=== PATIENT | female | born 1945 | race Caucasian/White ===

== ENCOUNTER → 2024-05-06 | Outpatient (CLI) | payer MEDICARE, MEDICAID, SELFPAY ==
[2024-05-06 14:21] LABS: Basophils % (Auto) 0 % (0-2.5); Eosinophils # (Auto) 0.1 Thou/mm3 (0.0-0.5); Eosinophils % (Auto) 1 % (0-10); Hematocrit 43.4 % (36.0-46.0); Hemoglobin 14.3 g/dL (12.0-16.0); Immature Granulocytes % (Auto) 0 % (0-0); Immature Granulocytes Auto 0.01 Thou/mm3 (0.00-0.00); Lymphocytes # (Auto) 2.5 Thou/mm3 (1.0-4.8); Lymphocytes % (Auto) 31 % (10-50); Mean Corpuscular HGB Conc 32.9 g/dl (31.0-37.0); Mean Corpuscular Hemoglobin 29.5 pg (25.0-35.0); Mean Corpuscular Volume 90 fL (80-100); Monocytes # (Auto) 0.6 Thou/mm3 (0.0-0.8); Monocytes % (Auto) 7 % (0-12); Neutrophils # (Auto) 4.8 Thou/mm3 (1.8-7.7); Neutrophils % (Auto) 59 % (37-80); Nucleated Red Blood Cell % 0 /100 WBC (0); Platelet Count 285 Thou/mm3 (140-440); RDW Standard Deviation 42.5 fL (36.4-46.3); Red Blood Count 4.84 Miln/mm3 (4.00-5.20)
[2024-05-06 14:28] LABS: Partial Thromboplastin Time 24.8 Seconds (22.0-36.0); Prothrombin Time 10.7 Seconds (9.0-12.2)
[2024-05-06 15:26] LABS: Anion Gap 9 (7-16); BUN/Creatinine Ratio 23 Ratio (12-20); Blood Urea Nitrogen 25 mg/dL (9-23); Calcium 10.1 mg/dL (8.3-10.6); Carbon Dioxide 28.6 mMol/L (20.0-31.0); Chloride 103 mMol/L (98-107); Creatinine (Component) 1.1 mg/dL (0.6-1.3); Glucose 100 mg/dL (74-106); Osmolality,Calculated 285 (275-295); Potassium 4.7 mMol/L (3.4-5.1); Sodium 141 mMol/L (136-145); eGFR 52 See Note
== END | disposition home or self-care (01) ==
PROVIDERS: PCP Internal Medicine; Referring Provider Internal Medicine; Visit Provider Internal Medicine
DX: I25.10 Atherosclerotic heart disease of native coronary artery without angina pectoris (principal); I48.91 Unspecified atrial fibrillation
CPT/HCPCS: 36415; 80048; 85025; 85610; 85730

== ENCOUNTER → 2024-05-12 | Outpatient (CLI) | payer MEDICARE, MEDICAID, SELFPAY ==
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
== END | disposition home or self-care (01) ==
LOC: CDIM 13:41
PROVIDERS: PCP Nurse Practitioner Family; Referring Provider Nurse Practitioner Family; Visit Provider Nurse Practitioner Family
DX: S99.822A Other specified injuries of left foot, initial encounter (principal); W34.00XA Accidental discharge from unspecified firearms or gun, initial encounter
CPT/HCPCS: 73630

== ENCOUNTER → 2024-09-23 | Outpatient (CLI) | payer MEDICARE, MEDICAID, SELFPAY ==
--- NOTE | 2024-09-23 | XR_ITS ---
Examination: Bone densitometry Date and time of exam:September 23, 2024 1507 hours INDICATIONS: Menopause age 47 vitamin D one year Technique: Lumbar spine and hip total bone mineralization values of an calculated. Peak reference and age match control results have been displayed. Findings: Lumbar spine total bone mineralization is0.837 gm/cm2. This is 1.9 standard deviations below peak reference. This is 0.6 standard deviations above age-matched controls. Hip total bone mineralization is 0.787 gm/cm2 This is 1.3 standard deviations below peak reference. This is 0.6 standard deviations above age-matched controls Impression: There is osteopenia based on lumbar spine measurements. There is osteopenia based on hip measurements
== END | disposition home or self-care (01) ==
LOC: CDIM 14:19
PROVIDERS: Referring Provider Nurse Practitioner Family; Visit Provider Nurse Practitioner Family
DX: M85.89 Other specified disorders of bone density and structure, multiple sites (principal)
CPT/HCPCS: 77080

== ENCOUNTER → 2024-09-29 | Outpatient (CLI) | payer MEDICARE, MEDICAID, SELFPAY ==
--- NOTE | 2024-09-29 | XR_ITS ---
Examination: Lumbar spine 3 views Technique one AP lateral coned lateral lower lumbar spine 3 views Date and time: September 29 thousand 25, 0816 hours INDICATIONS: Lower back pain beginning 6 months ago. FINDINGS: Severe osteopenia Chronic osteoporotic compressions L4, L3, L2, L1, T12,. No acute fracture Mild disc narrowing posteriorly L5-S1 IMPRESSION: Chronic osteoporotic compressions No acute fractures
[2024-09-29 09:42] LABS: Basophils # (Auto) 0.0 Thou/mm3 (0.0-0.2); Basophils % (Auto) 1 % (0-2.5); Eosinophils # (Auto) 0.1 Thou/mm3 (0.0-0.5); Eosinophils % (Auto) 2 % (0-10); Hematocrit 41.9 % (36.0-46.0); Hemoglobin 14.1 g/dL (12.0-16.0); Immature Granulocytes Auto 0.00 Thou/mm3 (0.00-0.00); Lymphocytes # (Auto) 2.1 Thou/mm3 (1.0-4.8); Lymphocytes % (Auto) 39 % (10-50); Mean Corpuscular HGB Conc 33.7 g/dl (31.0-37.0); Mean Corpuscular Hemoglobin 30.3 pg (25.0-35.0); Mean Corpuscular Volume 90 fL (80-100); Monocytes # (Auto) 0.5 Thou/mm3 (0.0-0.8); Monocytes % (Auto) 9 % (0-12); Neutrophils # (Auto) 2.7 Thou/mm3 (1.8-7.7); Neutrophils % (Auto) 49 % (37-80); Nucleated Red Blood Cell # 0.00 Thou/mm3 (0.00-0.00); Nucleated Red Blood Cell % 0 /100 WBC (0); Platelet Count 275 Thou/mm3 (140-440); RDW Standard Deviation 43.1 fL (36.4-46.3); Red Blood Count 4.66 Miln/mm3 (4.00-5.20); White Blood Count 5.5 Thou/mm3 (3.6-11.0)
[2024-09-29 10:13] LABS: Alanine Aminotransferase 12 U/L (10-49); Albumin, Serum 4.2 gm/dL (3.4-4.8); Albumin/Globulin Ratio 1.7 (1.2-2.2); Alkaline Phosphatase 67 U/L (46-116); Anion Gap 9 (7-16); Aspartate Amino Transferase 21 U/L (0-34); BUN/Creatinine Ratio 11 Ratio (12-20); Bilirubin,Total 0.4 mg/dL (0.3-1.2); Blood Urea Nitrogen 11 mg/dL (9-23); Calcium 9.3 mg/dL (8.3-10.6); Calcium (Corrected) 9.3 mg/dL (8.5-10.1); Carbon Dioxide 24.3 mMol/L (20.0-31.0); Cardiac Risk Estimate 6.4 RATIO (3.7-5.6); Chloride 108 mMol/L (98-107); Cholesterol 230 mg/dL (132-200); Creatinine (Component) 1.0 mg/dL (0.6-1.3); Free T4 (Free Thyroxine) 1.21 ng/dL (0.89-1.76); Globulin 2.5 gm/dL (2.3-3.5); Glucose 93 mg/dL (74-106); HDL Cholesterol 36 mg/dL (40-60); LDL Cholesterol,Calculated 148 mg/dL (0-130); Osmolality,Calculated 280 (275-295); Potassium 4.4 mMol/L (3.4-5.1); Sodium 141 mMol/L (136-145); Thyroid Stimulating Hormone 1.90 uIU/mL (0.55-4.78); Total Protein 6.7 gm/dL (5.7-8.2); Triglycerides 228 mg/dL (30-150); eGFR 58 See Note
[2024-09-29 10:33] LABS: Hepatitis C Antibody Non Reactive (Non React); Vitamin D 25 Hydroxy Total 55.0 ng/mL (7.3-40.2)
[2024-10-04 14:37] LABS: Direct LDL* 127 mg/dL (<100)
== END | disposition home or self-care (01) ==
LOC: CDIM 07:21 → COPL 08:25 → CDIM 10-13 13:29
PROVIDERS: PCP Nurse Practitioner Family; Referring Provider Nurse Practitioner Family; Visit Provider Nurse Practitioner Family
DX: M81.0 Age-related osteoporosis without current pathological fracture (principal); M85.80 Other specified disorders of bone density and structure, unspecified site; E78.00 Pure hypercholesterolemia, unspecified; Z13.1 Encounter for screening for diabetes mellitus; Z13.29 Encounter for screening for other suspected endocrine disorder; Z11.59 Encounter for screening for other viral diseases
CPT/HCPCS: 36415; 72100; 80053; 80061; 82306; 83036; 83721; 84439; 84443; 85025; 86803

== ENCOUNTER 2024-11-04 16:07 | Observation (INO) | payer MEDICARE, MEDICAID, SELFPAY ==
--- NOTE | 2024-11-02 07:00 | EKG_ITS ---
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
[2024-11-02 07:58] VITALS: BMI 28.9
[2024-11-02 08:58] LABS: Basophils # (Auto) 0.0 Thou/mm3 (0.0-0.2); Basophils % (Auto) 0 % (0-2.5); Eosinophils # (Auto) 0.2 Thou/mm3 (0.0-0.5); Eosinophils % (Auto) 3 % (0-10); Hematocrit 42.4 % (36.0-46.0); Hemoglobin 14.2 g/dL (12.0-16.0); Immature Granulocytes Auto 0.01 Thou/mm3 (0.00-0.00); Lymphocytes # (Auto) 2.5 Thou/mm3 (1.0-4.8); Lymphocytes % (Auto) 37 % (10-50); Mean Corpuscular HGB Conc 33.5 g/dl (31.0-37.0); Mean Corpuscular Hemoglobin 30.3 pg (25.0-35.0); Mean Corpuscular Volume 91 fL (80-100); Monocytes # (Auto) 0.6 Thou/mm3 (0.0-0.8); Monocytes % (Auto) 8 % (0-12); Neutrophils # (Auto) 3.5 Thou/mm3 (1.8-7.7); Neutrophils % (Auto) 51 % (37-80); Nucleated Red Blood Cell # 0.00 Thou/mm3 (0.00-0.00); Nucleated Red Blood Cell % 0 /100 WBC (0); Platelet Count 257 Thou/mm3 (140-440); RDW Standard Deviation 41.6 fL (36.4-46.3); Red Blood Count 4.68 Miln/mm3 (4.00-5.20); White Blood Count 6.7 Thou/mm3 (3.6-11.0)
[2024-11-02 09:13] LABS: INR 1.0 (0.9-1.3); Partial Thromboplastin Time 24.2 Seconds (22.0-36.0); Prothrombin Time 10.8 Seconds (9.0-12.2)
[2024-11-02 09:27] LABS: Alanine Aminotransferase 12 U/L (10-49); Albumin, Serum 4.4 gm/dL (3.4-4.8); Albumin/Globulin Ratio 1.6 (1.2-2.2); Alkaline Phosphatase 60 U/L (46-116); Anion Gap 12 (7-16); Aspartate Amino Transferase 23 U/L (0-34); BUN/Creatinine Ratio 15 Ratio (12-20); Bilirubin,Total 0.4 mg/dL (0.3-1.2); Blood Urea Nitrogen 17 mg/dL (9-23); Calcium 9.6 mg/dL (8.3-10.6); Calcium (Corrected) 9.6 mg/dL (8.5-10.1); Carbon Dioxide 23.0 mMol/L (20.0-31.0); Chloride 107 mMol/L (98-107); Creatinine (Component) 1.1 mg/dL (0.6-1.3); Estimated Creatinine Clearance 36.6 mL/min (>60); Globulin 2.8 gm/dL (2.3-3.5); Glucose 94 mg/dL (74-106); Osmolality,Calculated 284 (275-295); Potassium 4.6 mMol/L (3.4-5.1); Sodium 142 mMol/L (136-145); Total Protein 7.2 gm/dL (5.7-8.2); eGFR 52 See Note
--- NOTE | 2024-11-03 13:44 | SUR.PREOP ---
Pt notified to come in at 0700, requested by Chad OR JOSEPH.
[2024-11-04] VITALS (24 sets, daily range): BP systolic 93–126; BP diastolic 55–84; PULSE 56–83; RESP 12–20; TEMP 36.1–36.8; O2SAT 95–100; BMI 28.6; BMI 29.0; BMI 29.7
--- NOTE | 2024-11-04 11:26 | SUR.PHASEI ---
1126 Patient arrived to recovery resting comfortably in [facility], sleeping comfortably able to arouse with verbal prompting then drifts back to sleep, on oxygen 6L via oxy mask, breathing unlabored, vital signs stable, denies pain and nausea, dressing intact to right lower leg; sutures, steri-strips, abd, kerlix roll, ke wraps, no bleeding noted, bilateral dorsalis pedis pulses present when palpated, report received from Yandel CAR and Harris DODSON
--- NOTE | 2024-11-04 11:28 | PD.SUROPNT ---
Date of Procedure 11/04/24 Pre Op Diagnosis Symptomatic varicose veins right lower extremity Post Op Diagnosis Same as pre-op diagnosis Procedure Varicose vein excisions right lower extremity through 46 incisions Findings All marked varicose veins were successfully removed or disrupted Procedure Description With the patient standing in the preop area all the varicose veins of the right lower extremity to be removed were carefully marked with a sharpie pen. The patient was then brought to the operating room and general anesthesia was induced. The right lower extremity was then sterilely prepped and draped. A timeout was performed. At this point the vein excisions were manage by making a small skin ramona with a #11 blade in each of the marked areas then bluntly enlarging these incisions with a mosquito clamp and sequentially grasping and excising the veins. After all marked veins were either removed or disrupted hemostasis was obtained and the leg was washed then Steri-Strips were placed to reapproximate the incisions. A multilayer sterile bandage was then applied and the patient woke up from anesthesia was moved to recovery in stable condition Anesthesia other (Laryngeal mask anesthesia) Pathology / specimen Other (Right leg varicose veins) Estimated Blood Loss 75 Condition Stable Disposition PACU Surgeon Kaleb Ramsey MD Surgical Staff Operation Date: 11/04/24 10:45 Case Staff SUPERVISOR SUNGLASSES: Kendall Gayle RN First Assistant: Iliana Hankins
--- NOTE | 2024-11-04 12:00 | SUR.PHASEI ---
report from nurse noam. vss. breathing even and unlabored. denies pain and nausea. ppp. 100% on 8loxy mask at this time.
--- NOTE | 2024-11-04 12:33 | SUR.PHASEI ---
report to nurse noam. vss. breathing unchanged. vss. pt remains sleepy. dressing cdi.
--- NOTE | 2024-11-04 13:20 | SUR.PHASEII ---
1320 patients son at bedside, updated on patient she is very sleepy and remains on oxygen, stated he would be going home and to call him when she is closer to being ready for discharge
--- NOTE | 2024-11-04 13:26 | SUR.PHASEII ---
6579 Yandel CORSET FITTER notified via telephone regarding patient remaining sleepy and need for oxygen, patient arouses with verbal prompting, however unable to keep her eye open and drifts back to sleep, order received to continue to monitor patient and if patient is not improving in one hour contact anesthesia provider
--- NOTE | 2024-11-04 13:50 | SUR.PHASEII ---
2528 patient awake drinking fluids, working with her with incentive spirometer, will contact patient son to proceed back to the hospital
--- NOTE | 2024-11-04 14:45 | SUR.PHASEII ---
144 patient had an episode of emesis 100ml, patient shared she feel better after will monitor
[2024-11-04] MEDS: ONDANSETRON INJ 2 MG/ML INJ 2 ML 4 MG IVP (15:10)
--- NOTE | 2024-11-04 15:25 | SUR.PHASEII ---
1505 patient had an episode of emesis 200ml, stated she feels very nausea 1506 notified Yandel CAR via telephone regarding patient nausea, telephone order read-back received from Zofran 4mg via IVP x1 for nausea/vomitting, will place order in EMR and administer per anesthesia order 1525 medication effective, patient eating ice chips, taking small sip of water, denies nausea
--- NOTE | 2024-11-04 16:20 | SUR.PHASEII ---
1545 discharge instructions completed, patient dressed into her clothing and transferred into wheelchair, became anxious, stating, I feel like I'm going to , I don't feel good, I feel dizzy, I just want to lay on the floor , emotional support provided patient states, I just can't , patients son at bedside [address] Ramsey regard patient current condition, telephone order read-back received from Dr. Ramsey for Hospital Consult for care of patient and overnight stay for observation, will patient order in EMR and contact Dr. Lima [address] Lima via telephone, gave him report of patient status 1620 Dr. Lima, Dr. Johnson and Dr. Krause at bedside with patient, assessing patient, speaking with patient and her son
--- NOTE | 2024-11-04 16:48 | SUR.PHASEII ---
report received from nurse santacruz. vss. pt on 4 l oxymask 99%. son at bedside. denies pain and nausea. dressing cdi to right leg. awaiting bed in ms.
--- NOTE | 2024-11-04 17:20 | SUR.PHASEII ---
report to nurse dedra. transported to room via gurney. vss. breathing even and unlabored. denies pain and nausea. dressing cdi. nurse at bedside doing b;adder scan. pure wic remains in place.
--- NOTE | 2024-11-04 17:42 | PD.RESCONSUL ---
HPI Data of Consult Requesting Physician: Kaleb Ramsey MD Admitting Provider: Kaleb Ramsey MD Attending Provider: Kaleb Ramsey MD Primary Care Provider: Cherri Lafleur NP Consult Narrative Reason for consult: Drowsy, weak, anxious History of present illness: Sue Vaughan is 79 yr female with PMH of HLD, osteoporosis, and varicose veins who is s/p right leg varicose vein excision by Dr. Ramsey today. IM team was consulted to monitor patient overnight due to anxiety, lethargy, and weakness after procedure. Patient had received general anesthesia and no major complications during surgery. She did require oxygen on oxime mask but was able to be weaned off without difficulties and now saturating on room air adequately. Per nursing, patient had some nausea and 2 episodes of emesis after drinking some water. She received 2 L IV fluids intraoperatively and 1 L postop. She was examined at bedside and is alert and oriented x 3, drowsy most likely from sedation, vitals are stable. Labs are unremarkable. Continue to monitor patient, IV fluids, clear liquid diet and advance as tolerated. PMH: noted above PSH: , RFA right leg, left foot surgery, RFA right leg. FamHx: unknown Social: denies smoking or drinking, lives with family. Meds: atorvastatin 10mg, alendronate 70mg cc:: cc: Kaleb Ramsey MD Review of Systems Review of Systems Systems Reviewed: All systems reviewed, normal except as documented Exam Vital Signs Temp Pulse Resp BP Pulse Ox O2 Flow Rate 97.8 F 65 18 118/67 98 3 11/04/24 17:20 11/04/24 17:20 11/04/24 17:20 11/04/24 17:20 11/04/24 17:20 11/04/24 17:20 Narrative Exam General: Elderly female, No acute distress, cooperative HEENT: NCAT, No JVD noted. Mucosa moist. Pupils are equal and reactive to light bilaterally Cardiovascular: Normal S1 and S2. Regular rate and rhythm. Respiratory: Lungs are clear to auscultation bilaterally. No wheezing or crackles heard. Abdomen: Soft, nontender, not distended, normal bowel sounds. Skin: Warm to touch, dry, no rashes noted Musculoskeletal: No gross injuries. Able to move all 4 extremities. No pitting edema, right LE wrapped in Kerlix roll post surgery Neuro: Alert and oriented x3. No focal neuro deficits. Psych: Normal affect and mood Results Labs 11/05/24 05:03 11/05/24 05:03 Quality Measures Quality Measures VTE prophylaxis Advance care planning discussed with:: patient and child Medications Home Medications and Allergies Home Medications ?Medication ?Instructions ?Recorded ?Confirmed ?Type alendronate 70 mg tablet 70 mg PO QWEEK 11/02/24 11/02/24 History atorvastatin 10 mg tablet 10 mg PO HS 11/02/24 11/02/24 History Allergies Allergy/AdvReac Type Severity Reaction Status Date / Time aspirin Allergy Mild Nausea Verified 11/04/24 07:03 Visit Medications Lactated Ringer's (Lactated Ringers) 1,000 mls @ 75 mls/hr IV .[id number] ONE Stop: 11/04/24 19:19 Discontinued Medications Cefazolin Sodium (Ancef 2gm Ivpb) 2 gm in 100 mls @ 100 mls/hr IV X1 ONE Stop: 11/04/24 06:59 Lactated Ringer's (Lactated Ringers) 1,000 mls @ 20 mls/hr IV .Q24H ONE Stop: 11/05/24 05:59 Ondansetron HCl (Ondansetron Inj 2 Mg/Ml Inj 2 Ml) 4 mg IVP X1 ONE; Protocol Stop: 11/04/24 15:08 Last Admin: 11/04/24 15:10 Dose: 4 mg Assessment & Plan Plan Sue Vaughan is 79 yr female with PMH of HLD, osteoporosis, and varicose veins who is s/p right leg varicose vein excision by Dr. Ramsey today. IM team was consulted to monitor patient overnight due to anxiety, lethargy, and weakness after procedure. #Weakness #Anxiety #Lethargy #s/p varicose vein excision Post anesthesia for treatment of right leg varicose veins with excision. Completed by Dr. Ramsey today. No complications during procedure. ? Continue to monitor patient vitals ? Continue IV maintenance fluids 75 cc/h LR ?Clear liquid diet advance as tolerated ?IV Zofran 4 mg Q6hr nausea The patient's management plan was discussed with my attending physician Dr. Lima. Dottie Johnson, PGY-2 Attending Provider Attestation/Addendum I have discussed and was present for the essential components of the history, physical examination, diagnosis, and treatment plan with the resident. I agree with the patient's care as documented by the resident and amended herein by me. Augusto Lima DO. Although this document has been carefully reviewed, there may still be some phonetic and other typographical errors. These errors are purely grammatical due to imperfections in the software program and should not be construed in any way to compromise the substance of the patient's medical care during this visit. Patient seen and evaluated in the PACU, patient postop day 0 for right lower extremity varicose vein excision. After the procedure, the patient's was experiencing delirium, nausea and vomiting in the PACU, likely all secondary to her anesthesia, we will observe her overnight, her vital signs are presently stable at time of bedside visit, no acute distress. Will observe overnight and likely discharge the patient in the morning per Dr. Ramsey's recommendations.
[2024-11-04] MEDS: RINGERS LACTATED 1000 ML 1,000 ML 75 ML IV (18:07)
[2024-11-05] VITALS: BP 112/68; PULSE 72; RESP 17; TEMP 36.1; O2SAT 99
[2024-11-05 04:00] VITALS: BP 113/68; PULSE 71; RESP 17; TEMP 36.1; O2SAT 99
[2024-11-05 05:59] LABS: Basophils # (Auto) 0.0 Thou/mm3 (0.0-0.2); Basophils % (Auto) 0 % (0-2.5); Eosinophils # (Auto) 0.0 Thou/mm3 (0.0-0.5); Eosinophils % (Auto) 0 % (0-10); Hematocrit 34.5 % (36.0-46.0); Hemoglobin 11.7 g/dL (12.0-16.0); Immature Granulocytes Auto 0.03 Thou/mm3 (0.00-0.00); Lymphocytes # (Auto) 2.2 Thou/mm3 (1.0-4.8); Lymphocytes % (Auto) 23 % (10-50); Mean Corpuscular HGB Conc 33.9 g/dl (31.0-37.0); Mean Corpuscular Hemoglobin 30.4 pg (25.0-35.0); Mean Corpuscular Volume 90 fL (80-100); Monocytes # (Auto) 0.7 Thou/mm3 (0.0-0.8); Monocytes % (Auto) 7 % (0-12); Neutrophils # (Auto) 6.6 Thou/mm3 (1.8-7.7); Neutrophils % (Auto) 69 % (37-80); Nucleated Red Blood Cell # 0.00 Thou/mm3 (0.00-0.00); Nucleated Red Blood Cell % 0 /100 WBC (0); Platelet Count 227 Thou/mm3 (140-440); RDW Standard Deviation 41.3 fL (36.4-46.3); Red Blood Count 3.85 Miln/mm3 (4.00-5.20); White Blood Count 9.5 Thou/mm3 (3.6-11.0)
[2024-11-05 06:14] LABS: Anion Gap 9 (7-16); BUN/Creatinine Ratio 14 Ratio (12-20); Blood Urea Nitrogen 11 mg/dL (9-23); Calcium 9.2 mg/dL (8.3-10.6); Carbon Dioxide 26.4 mMol/L (20.0-31.0); Chloride 106 mMol/L (98-107); Creatinine (Component) 0.8 mg/dL (0.6-1.3); Estimated Creatinine Clearance 51.0 mL/min (>60); Glucose 89 mg/dL (74-106); Osmolality,Calculated 279 (275-295); Potassium 4.3 mMol/L (3.4-5.1); Sodium 141 mMol/L (136-145); eGFR > 60 See Note
[2024-11-05 06:57] VITALS: PULSE 68; RESP 18; O2SAT 97
[2024-11-05 07:30] VITALS: BP 109/63; PULSE 65; RESP 17; TEMP 36.1; O2SAT 99
--- NOTE | 2024-11-05 10:39 | PC.SS ---
Sue Vaughan is a 79-year-old female admitted to Med Surg for Right Leg Varicose Vein Excision. SS conducted bedside contact with the patient to complete initial assessment and to discuss discharge planning. SS utilized Electrical Power Station Technician Sharee. Role and reason explained. Patient confirmed demographic information. Patient identifies son Garett Vaughan [phone] as her surrogate decision maker. Pt states she is able to complete all ADL?s independently. No need for any source of DME. Pts PCP is Cherri Pastrana. Discharge options discussed and the pt wishes to return home.? Family will provide transportation upon DC. No further intervention required at this time, social sciences research scientist would be available to address any further concerns. DC Plan: Home Contact: Garett Ashton Address: Confirmed PCP: Clement Lafleur ?
[2024-11-05 11:46] VITALS: BP 99/58; PULSE 58; RESP 17; TEMP 36.1; O2SAT 97
--- NOTE | 2024-11-05 14:31 | PD.RESDS ---
Planned Discharge Date 11/05/24 DS: Providers Provider Date of admission: 11/04/24 16:07 Primary care physician: Cherri Lafleur NP Admitting Provider: Kaleb Ramsey MD Attending Provider on Admission: Vernon Lima DO Consults: 11/04/24 16:02 Consult to Adult Hospitalist Urgent Comment: Consulting Provider: Vernon Lima Attending Provider on DC: Vernon Lima DO Discharging Provider: Vernon Lima DO DS: Diagnosis Problem List Completed Was Problem List Reviewed/Reconciled?: Yes Hospital Course Hospital Course Hospital course: Sue Vaughan is 79 yr female with PMH of HLD, osteoporosis, and varicose veins who is s/p right leg varicose vein excision by Dr. Ramsey today. Procedure was completed on 11/04/24. IM team was consulted to monitor patient overnight due to anxiety, lethargy, and weakness after procedure. Patient had received general anesthesia and no major complications during surgery. She did require oxygen on oxime mask but was able to be weaned off without difficulties and was saturating on room air adequately. Per nursing, patient had some nausea and 2 episodes of emesis after drinking some water. She received 2 L IV fluids intraoperatively and 1 L postop. Symptoms resovled overnight. Patient is now in stable condition and ready for discharge. Recommendations were given as below. Discharge Recommendations: The patient may remove all dressings and bathe in 72 hours then dry and redress. The patient may bathe ad mayelin. thereafter but keep on redressing the leg for at least 7 to 10 days El paciente puede retirar todos los vendajes y ba?arse en 72 horas, luego secarse y volver a vestirse. Puede ba?arse libremente despu?s, hayden debe seguir vistiendo la pierna tito al menos 7 a 10 d?as. Hospital Diagnoses: #Weakness #Anxiety #Lethargy #s/p varicose vein excision The patient's management plan was discussed with my attending physician Dr. Lima. Dottie Johnson MD, PGY-2 Time Spent with Patient Time attestation: Total time spent providing and/or coordinating discharge services: Time spent: Greater than 30 minutes Quality: VTE Deep Vein Thrombosis/Pulmonary Embolism Present on Admission: No Exam Vital Signs Temp Pulse Resp BP Pulse Ox O2 Del Method O2 Flow Rate 97.0 F 58 L 17 99/58 L 97 Room Air 2 11/05/24 11:46 11/05/24 11:46 11/05/24 11:46 11/05/24 11:46 11/05/24 11:46 11/05/24 11:46 11/05/24 07:30 Narrative Exam General: Elderly female, No acute distress, cooperative HEENT: NCAT, No JVD noted. Mucosa moist. Pupils are equal and reactive to light bilaterally Cardiovascular: Normal S1 and S2. Regular rate and rhythm. Respiratory: Lungs are clear to auscultation bilaterally. No wheezing or crackles heard. Abdomen: Soft, nontender, not distended, normal bowel sounds. Skin: Warm to touch, dry, no rashes noted Musculoskeletal: No gross injuries. Able to move all 4 extremities. No pitting edema, right LE wrapped in Kerlix roll post surgery Neuro: Alert and oriented x3. No focal neuro deficits. Psych: Normal affect and mood Discharge Plan Plan Patient Disposition: HOME (Self Care) Patient condition on transfer: Stable Prescriptions/Referrals Prescriptions/Med Rec: Continued atorvastatin 10 mg tablet 10 mg PO HS Patient Comments: TAKE 1 TABLET BY MOUTH EVERYDAY AT BEDTIME alendronate 70 mg tablet 70 mg PO QWEEK Patient Comments: TAKE 1 TABLET BY MOUTH WEEKLY DIRECTED FOR 90 DAYS FOR OSTEPENIA Referrals: Kaleb Ramsey MD [Physician, Vascular Surgery] Cherri Lafleur NP [Primary Care Provider] Patient/Caregiver Discharge Instructions Discharge Activity: activity as tolerated Other Discharge Activity Instructions:: The patient may remove all dressings and bathe in 72 hours then dry and redress. The patient may bathe ad mayelin. thereafter but keep on redressing the leg for at least 7 to 10 days El paciente puede retirar todos los vendajes y ba?arse en 72 horas, luego secarse y volver a vestirse. Puede ba?arse libremente despu?s, hayden debe seguir vistiendo la pierna tito al menos 7 a 10 d?as. Education Materials: Anesthesia: General Anesthesia, Surgery Anesthesia After, Using an Incentive Spirometer, Surgery for Varicose Veins, Varicose Vein Surg Dc, Incision Care Dc, [facility] General Discharge-Citizen Of [place] Print Language: Dutch Stand Alone Forms: [place]a Award Info., Patient Portal Info Letter Discharge Order Discharge Orders: Discharge (Routine); Ordered 11/05/24 Ordered By: Vernon Lima Quality Discharge Quality Measures VTE prophylaxis Attestestation Attestation I have discussed and was present for the essential components of the discharge history, physical examination, diagnosis, and discharge treatment plan with the resident. I agree with the patient's discharge care as documented by the resident and amended herein by me. Augusto Lima, DO. The patient understood all discharge instructions, all questions were answered satisfactorily. The patient was instructed to return to the Emergency Department is symptoms worsened or persisted. Patient back to baseline, doing well this morning, labs largely unremarkable, the patient was stable, afebrile, tolerating p.o. intake at time of discharge home, Dr. Ramsey notified of patient's clinical status and agrees with discharge. Although this document has been carefully reviewed, there may still be some phonetic and other typographical errors. These errors are purely grammatical due to imperfections in the software program and should not be construed in any way to compromise the substance of the patient's medical care during this visit.
== END 2024-11-05 14:03 | disposition home or self-care (01) ==
LOC: S2EX 17:34 → S3NX 17:36
PROVIDERS: Anesthesiology; Admitting Provider Surgery Vascular Surgery; PCP Nurse Practitioner Family; Referring Provider Surgery Vascular Surgery; Visit Provider Student in an Organized Health Care Education/Training Program
PROC: (CPT 36475; principal; 2024-11-04 10:30)
DX: I83.811 Varicose veins of right lower extremity with pain (principal); Z01.810 Encounter for preprocedural cardiovascular examination; E78.5 Hyperlipidemia, unspecified; M81.0 Age-related osteoporosis without current pathological fracture; F41.9 Anxiety disorder, unspecified; R53.83 Other fatigue; R53.1 Weakness
CPT/HCPCS: 37766; 36415; 80048; 80053; 85025; 85610; 85730; 93005; 96374; A4217; A4649; C1894; G0378; J0131; J0690; J1171; J2250; J2405; J2704; J3010; J3490; J7050; J7120

== ENCOUNTER → 2024-12-06 | Outpatient (CLI) | payer MEDICARE, MEDICAID, SELFPAY ==
--- NOTE | 2024-12-06 14:32 | XR_ITS ---
Examination: Shoulder, left, 3 views Technique: Shoulder AP internal rotation, AP external rotation, Y view shoulder, 3 views Exam date and time : December 06, 2024, 1448 hours INDICATIONS: Left shoulder pain 2 days FINDINGS: Moderate osteopenia. Moderate narrowing glenohumeral joint. No fracture or dislocation IMPRESSION: Moderate narrowing glenohumeral joint
== END | disposition home or self-care (01) ==
LOC: CDIM 14:20
PROVIDERS: PCP Nurse Practitioner Family; Referring Provider Nurse Practitioner Family; Visit Provider Nurse Practitioner Family
DX: M25.812 Other specified joint disorders, left shoulder (principal)
CPT/HCPCS: 73030